=== PATIENT | male | born 1940 | race Asian ===

== ENCOUNTER 2018-01-19 10:03 | Inpatient (IN) | payer BC ==
[~2018-01-19] VITALS: Ht 172.7 cm; Wt 79.3 kg
[2018-01-19] MEDS ORDERED: SODIUM CHLORIDE 0.9% 500 ML IVB ONE (10:31)
[2018-01-19] MEDS ORDERED: LORazepam 2MG/ML-1ML VIAL IV ONE (10:45)
[2018-01-19 11:02] LABS: Basophils # (auto) 0 uL; Basophils % (auto) 0.9 % (0.0-2.0); Eosinophils # (auto) 0.1 uL; Hemoglobin 15.6 g/dL (13.5-17.5); Lymphocytes # (auto) 1.2 uL; Mean Corpuscular Hemoglobin 29.5 pg (28.0-32.0); Mean Corpuscular Hgb Conc. 33.1 g/dL (32.0-36.0); Mean Corpuscular Volume 89.1 fL (80.0-100.0); Monocytes # (auto) 0.2 uL; Monocytes % (auto) 4.2 % (0.0-12.0); Neutrophils # (auto) 3.4 uL; Neutrophils % (auto) 68.9 % (37.0-80.0); Platelet Count (auto) 200 10^3/uL (140-450); Red Blood Cells 5.28 10^6/uL (4.5-5.90); Red Cell Distribution Width 13.9 % (11.8-14.3); White Blood Cell 4.9 10^3/uL (4.4-10.8)
[2018-01-19 11:26] LABS: Alanine Aminotransferase 28 U/L (16-61); Albumin 4.1 g/dL (3.4-5.0); Alkaline Phosphatase 37 U/L (45-117); Anion Gap 11 (5-15); Aspartate Aminotransferase 18 U/L (15-37); BUN/Creatinine Ratio 15.3; Bilirubin, Total 0.8 mg/dL (0.2-1.0); Blood Urea Nitrogen 23 mg/dL (7-18); Calcium 9.3 mg/dL (8.5-10.1); Carbon Dioxide 21 mmol/L (21-32); Chloride 107 mmol/L (98-107); GFR African American 58 mL/min; GFR Non-African American 48 mL/min; Glucose 147 mg/dL (74-106); Magnesium 2.3 mg/dL (1.6-2.6); Sodium 139 mmol/L (136-145); Total Protein 7.7 g/dL (6.4-8.2)
[2018-01-19] MEDS ORDERED: LISINOPRIL 10 MG TAB PO ONE (12:30)
[2018-01-19] MEDS ORDERED: HYDROcodone-ACET 5/325MG TAB PO PRN (12:30)
[2018-01-19] MEDS ORDERED: ACETAMINOPHEN 325 MG TAB PO PRN (12:30)
[2018-01-19] MEDS ORDERED: MORPHINE SULFATE 4 MG/ML SYR/VIAL IV PRN ×2 (12:30)
[2018-01-19] MEDS ORDERED: ONDANSETRON HCL 4 MG/2 ML VIAL IV PRN (12:30)
[2018-01-19] MEDS ORDERED: DOCUSATE SOD 100 MG CAP PO PRN (12:30)
[2018-01-19] MEDS ORDERED: TEMAZEPAM 15 MG CAP PO PRN (12:30)
[2018-01-19] MEDS ORDERED: NITROGLYCERIN 0.4 MG SL TAB SL PRN (12:30)
[2018-01-19] MEDS ORDERED: DEXTROSE (50%) 50ML SYRG IV PRN (12:30)
[2018-01-19] MEDS ORDERED: MULTIPLE VITAMIN TAB PO ONE (12:45)
[2018-01-19] MEDS ORDERED: ENOXAPARIN SOD 40 MG/0.4 ML SYRINGE SC ONE (12:45)
[2018-01-19] MEDS: SODIUM CHLOR 0.9% PF (SALINE LOCK) 10ML VIAL IV SCH ×2 (13:08→21:25)
[2018-01-19] MEDS: FAMOTIDINE 20 MG TAB PO SCH (13:26)
[2018-01-19] MEDS ORDERED: LISI-711 PO (15:30)
[2018-01-19] MEDS ORDERED: TAMS0.4C36 PO (15:30)
[2018-01-19] MEDS ORDERED: FENO134C4 PO (15:30)
[2018-01-19 16:30] VITALS: BP 101/69
[2018-01-19] MEDS: InsuLIN REG 1unit/0.01ml Soln (100units/ml) SC SCH ×2 (17:00→21:27)
[2018-01-19] MEDS: TAMSULOSIN HYDROCHLORIDE 0.4 MG CAP PO SCH (18:02)
[2018-01-19] MEDS: ACCU-CHEK COMFORT CURVE STRIP VI SCH ×2 (18:02→21:25)
[2018-01-19 21:44] VITALS: BP 97/60
[2018-01-19] MEDS ORDERED: FAMOTIDINE 20 MG TAB PO SCH (22:00)
[2018-01-19 22:03] LABS: Urine Bacteria NONE SEEN /hpf (None Seen); Urine Blood Negative /uL (Negative); Urine Specific Gravity 1.009 (1.001-1.035); Urine WBC 1 /hpf (0 - 3)
[2018-01-20 05:25] VITALS: BP 99/65
[2018-01-20] MEDS: SODIUM CHLOR 0.9% PF (SALINE LOCK) 10ML VIAL IV SCH ×3 (06:13→22:09)
[2018-01-20] MEDS: ACCU-CHEK COMFORT CURVE STRIP VI SCH ×4 (06:14→22:09)
[2018-01-20] MEDS: InsuLIN REG 1unit/0.01ml Soln (100units/ml) SC SCH ×4 (06:16→22:00)
[2018-01-20 06:43] LABS: Basophils # (auto) 0 uL; Basophils % (auto) 0.8 % (0.0-2.0); Eosinophils # (auto) 0.1 uL; Eosinophils % (auto) 2.8 % (0.0-7.0); Hematocrit 40.5 % (41.0-53.0); Hemoglobin 13.6 g/dL (13.5-17.5); Lymphocytes # (auto) 1.3 uL; Lymphocytes % (auto) 26.9 % (10.0-50.0); Mean Corpuscular Hemoglobin 30.1 pg (28.0-32.0); Mean Corpuscular Hgb Conc. 33.6 g/dL (32.0-36.0); Mean Corpuscular Volume 89.7 fL (80.0-100.0); Monocytes # (auto) 0.3 uL; Monocytes % (auto) 6.8 % (0.0-12.0); Neutrophils # (auto) 3.1 uL; Neutrophils % (auto) 62.7 % (37.0-80.0); Nucleated Red Blood Cells % 0.1 %; Platelet Count (auto) 180 10^3/uL (140-450); Red Blood Cells 4.52 10^6/uL (4.5-5.90); Red Cell Distribution Width 14.3 % (11.8-14.3); White Blood Cell 4.9 10^3/uL (4.4-10.8)
[2018-01-20 06:50] LABS: Potassium 3.9 mmol/L (3.5-5.1)
[2018-01-20 06:54] LABS: Albumin 3.5 g/dL (3.4-5.0); BUN/Creatinine Ratio 16.8; Calcium 8.8 mg/dL (8.5-10.1)
[2018-01-20 06:56] LABS: Bilirubin, Total 0.4 mg/dL (0.2-1.0); Total Protein 6.6 g/dL (6.4-8.2)
[2018-01-20 08:33] VITALS: BP 124/80
[2018-01-20] MEDS: FAMOTIDINE 20 MG TAB PO SCH (09:45)
[2018-01-20] MEDS: ENOXAPARIN SOD 40 MG/0.4 ML SYRINGE SC SCH (09:45)
[2018-01-20] MEDS: LISINOPRIL 10 MG TAB PO SCH (09:45)
[2018-01-20] MEDS: MULTIPLE VITAMIN TAB PO SCH (09:45)
[2018-01-20] MEDS: FENOFIBRATE 134 MG PO SCH (09:46)
[2018-01-20 12:26] VITALS: BP 125/68
[2018-01-20] MEDS ORDERED: ASP81EC PO (15:30)
[2018-01-20] MEDS ORDERED: ATOR20TA50 PO (15:30)
[2018-01-20] MEDS: TAMSULOSIN HYDROCHLORIDE 0.4 MG CAP PO SCH (17:24)
[2018-01-20 17:25] VITALS: BP 126/77
[2018-01-20 22:00] VITALS: BP 115/69
[2018-01-20] MEDS ORDERED: ATORVASTATIN 20 MG TAB PO SCH (22:00)
[2018-01-21 05:00] VITALS: BP 118/72
[2018-01-21] MEDS: ACCU-CHEK COMFORT CURVE STRIP VI SCH ×2 (06:35→11:30)
[2018-01-21] MEDS: SODIUM CHLOR 0.9% PF (SALINE LOCK) 10ML VIAL IV SCH ×2 (06:37→14:00)
[2018-01-21] MEDS: InsuLIN REG 1unit/0.01ml Soln (100units/ml) SC SCH ×2 (06:37→11:30)
[2018-01-21 07:48] LABS: Cholesterol 148 mg/dL (< 200); HDL Cholesterol 38 mg/dL (40-59); LDL Cholesterol 90 mg/dL (< 100); Triglycerides 200 mg/dL (< 150)
[2018-01-21 08:00] VITALS: BP 119/73
[2018-01-21 09:20] VITALS: BP 119/73
[2018-01-21] MEDS: FENOFIBRATE 134 MG PO SCH (10:00)
[2018-01-21] MEDS ORDERED: ASPirin-EC 81 mg tab PO SCH (10:00)
[2018-01-21] MEDS: FAMOTIDINE 20 MG TAB PO SCH (10:05)
[2018-01-21] MEDS: MULTIPLE VITAMIN TAB PO SCH (10:05)
[2018-01-21] MEDS: LISINOPRIL 10 MG TAB PO SCH (10:06)
[2018-01-21] MEDS: ENOXAPARIN SOD 40 MG/0.4 ML SYRINGE SC SCH (10:07)
[2018-01-21 12:55] VITALS: BP 132/83
[2018-01-21 14:57] VITALS: BP 132/83
[2018-01-21] MEDS ORDERED: ATORVASTATIN 20 MG TAB PO SCH (22:00)
== END 2018-01-21 15:30 | disposition home or self-care (01) | DRG 69 ==
LOC: ER 10:03 → TELE 10:04 → TELE-EAST 14:25
PROVIDERS: ADMIT Internal Medicine; ATTEND Hospitalist
DX: G45.9 Transient cerebral ischemic attack, unspecified (principal); J90 Pleural effusion, not elsewhere classified; E11.21 Type 2 diabetes mellitus with diabetic nephropathy; J98.11 Atelectasis; I11.9 Hypertensive heart disease without heart failure; E78.00 Pure hypercholesterolemia, unspecified; E78.5 Hyperlipidemia, unspecified; N40.0 Benign prostatic hyperplasia without lower urinary tract symptoms; Z96.642 Presence of left artificial hip joint; Z79.899 Other long term (current) drug therapy; N18.3 Chronic kidney disease, stage 3 (moderate); I70.0 Atherosclerosis of aorta; G96.8 Other specified disorders of central nervous system; R47.81 Slurred speech
CPT/HCPCS: 36415; 70450; 70551; 71045; 80053; 80061; 81001; 82962; 83036; 83735; 84443; 84484; 85025; 87086; 92610; 93005; 93306; 93886; 96361; 96372; 96374